=== PATIENT | male | born 2000 | race Two or more races ===

== ENCOUNTER 2022-05-16 10:20 | Emergency (ER) | payer OTHER ==
[2022-05-16 10:25] VITALS: BP 127/67; PULSE 73; RESP 18; TEMP 98.1; BMI 23.5
[2022-05-16] MEDS ORDERED: DIPHTH,PERTUSS(ACELL),TET 0.5 ML DISP.SYRIN IM ONE ×2 (10:55→11:05)
== END 2022-05-16 13:53 | disposition home or self-care (01) ==
LOC: JERFT 10:20
PROC: 3E0234Z Introduction of Serum, Toxoid and Vaccine into Muscle, Percutaneous Approach (ICD-10-PCS; principal; 2022-05-16)
DX: S01.81XA Laceration without foreign body of other part of head, initial encounter (principal); W25.XXXA Contact with sharp glass, initial encounter
CPT/HCPCS: 90471; 90715; 99284-25